=== PATIENT | female | born 1965 | race Asian ===

== ENCOUNTER → 2017-11-27 | Outpatient (CLI) | payer OTHER ==
[~2017-11-27] MED LIST: ALBU90OI INH; ANXIETY PILL; BENZ100A PO; IBUP600 PO; MIGRAINE PILL; MUSCLE RELAXER; Monodox100 MG PO; Prednisone20 MG PO; SPACE CHAMBER1 EACH MC; [UNRECOGNIZED DRUG - REMARK]
[2017-11-27 16:56] LABS: Bilirubin, Urine Neg (Neg); Blood, Urine 3+ (Neg); Glucose Qualitative, Urine Neg (Neg); Ketones, Urine Neg (Neg); Nitrite, Urine Neg (Neg)
[2017-11-27 16:59] LABS: Appearance, Urine Cloudy (Clear); Color, Urine Yellow (P-Yellow); Leukocyte Esterase, Urine Neg (Neg); Protein, Urine 2+ (Neg); Specific Gravity, Urine 1.025 (1.003-1.022); Urobilinogen, Urine 1+ (Normal)
[2017-11-27 17:11] LABS: Amorphous Heavy (0-Heavy); Bacteria Few /hpf; Red Blood Cells, Urine 25-50 /hpf (0-2); Squamous Epithelial Cells Not Seen /hpf (Few); White Blood Cells, Urine Not Seen /hpf (0-5)
[2017-11-28 09:04] LABS: Candida species (DNA Probe) Negative (NEGATIVE); G. vaginalis (DNA Probe) Positive (NEGATIVE); T. vaginalis (DNA Probe) Negative (NEGATIVE)
== END ==
LOC: LAB 12:15
PROVIDERS: Nurse Practitioner Family
DX: N89.8 Other specified noninflammatory disorders of vagina (principal); R35.0 Frequency of micturition
CPT/HCPCS: 81001; 87086; 87480; 87510; 87660

== ENCOUNTER → 2018-06-15 | Outpatient (CLI) | payer OTHER ==
[2018-06-16 11:52] LABS: Candida species (DNA Probe) Negative (NEGATIVE); G. vaginalis (DNA Probe) Positive (NEGATIVE); T. vaginalis (DNA Probe) Negative (NEGATIVE)
[2018-06-17 02:14] LABS: CHLAMYDIA TRACHOMATIS, NAA Negative (Negative); NEISSERIA GONORRHOEAE, NAA Negative (Negative)
== END ==
LOC: LAB 11:25 → LAB SHORT 11:25
PROVIDERS: Nurse Practitioner Family
DX: N89.8 Other specified noninflammatory disorders of vagina (principal)
CPT/HCPCS: 87480; 87491; 87510; 87591; 87660

== ENCOUNTER → 2018-12-21 | Outpatient (CLI) | payer OTHER ==
[2018-12-23 15:07] LABS: HPV 16 Negative (Negative); HPV 18 Negative (Negative); HPV OTHER HR TYPES Negative (Negative)
== END | disposition home or self-care (01) ==
LOC: LAB SHORT 15:57 → LAB 15:57
PROVIDERS: Obstetrics & Gynecology
DX: R87.810 Cervical high risk human papillomavirus (HPV) DNA test positive (principal)
CPT/HCPCS: 87624; 88142

== ENCOUNTER 2019-01-18 08:56 | Day surgery (SDC) | payer OTHER ==
[~2019-01-18] VITALS: Ht 167.6 cm; Wt 71.2 kg
[2019-01-18] MEDS ORDERED: TRAZ50 (09:35)
[2019-01-18] MEDS ORDERED: MIRT30 (09:36)
[2019-01-18] MEDS ORDERED: TIZANIDINE HCL4 MG (09:36)
== END 2019-01-18 10:57 | disposition home or self-care (01) ==
LOC: ORSCSDS 08:56
PROVIDERS: Internal Medicine Gastroenterology
PROC: 0DBH8ZX Excision of Cecum, Via Natural or Artificial Opening Endoscopic, Diagnostic (ICD-10-PCS; principal; 2019-01-18 10:30)
PROC: 0DBP8ZX Excision of Rectum, Via Natural or Artificial Opening Endoscopic, Diagnostic (ICD-10-PCS; principal; 2019-01-18 10:30)
DX: R10.9 Unspecified abdominal pain (principal); D12.0 Benign neoplasm of cecum; K62.1 Rectal polyp; Z80.0 Family history of malignant neoplasm of digestive organs; K59.00 Constipation, unspecified; J45.909 Unspecified asthma, uncomplicated; F43.10 Post-traumatic stress disorder, unspecified; K64.8 Other hemorrhoids; F41.8 Other specified anxiety disorders; F17.210 Nicotine dependence, cigarettes, uncomplicated; Z79.899 Other long term (current) drug therapy
CPT/HCPCS: 88305; J2250; J2704; J7120

== ENCOUNTER 2020-10-23 12:49 | Emergency (ER) | payer OTHER ==
[~2020-10-23] VITALS: Ht 165.1 cm; Wt 76.2 kg
[~2020-10-23 12:49] MED LIST changes: +MIRT30; +TIZANIDINE HCL4 MG; +TRAZ50
[2020-10-23 13:33] LABS: BASOPHILS ABSOLUTE AUTO 0.03 K/mm3 (0.00-0.23); BASOPHILS PERCENT AUTO 1 % (0-2); EOSINOPHILS ABSOLUTE AUTO 0.07 K/mm3 (0.00-0.68); EOSINOPHILS PERCENT AUTO 1 % (0-6); Hematocrit 39.1 % (33.0-51.0); Hemoglobin 13.1 g/dL (11.5-16.0); IMMATURE GRAN ABSOLUTE AUTO 0.02 K/mm3 (0.00-0.10); IMMATURE GRAN PERCENT AUTO 0 % (0-1); LYMPHOCYTES ABSOLUTE AUTO 1.76 K/mm3 (0.84-5.20); LYMPHOCYTES PERCENT AUTO 31 % (21-46); MONOCYTES PERCENT AUTO 9 % (4-13); Mean Corpuscular HGB Conc 33.5 g/dL (31.5-36.5); Mean Corpuscular Volume 95 fL (80-100); Mean Platelet Volume 9.5 fL (9.1-12.4); NEUTROPHILS ABSOLUTE AUTO 3.32 K/mm3 (1.96-9.15); NEUTROPHILS PERCENT AUTO 58 % (41-73); Platelet Count 296 K/mm3 (150-400); RDW Coefficient Variation 13.1 % (11.7-14.2); RDW Standard Deviation 46.1 fL (35.1-46.3)
[2020-10-23 13:52] LABS: Alanine Aminotransfer (ALT/SGP 28 U/L (12-78); Albumin, Blood 3.5 g/dL (3.4-5.0); Albumin/Globulin Ratio 0.8 (0.8-1.8); Alk Phos 86 U/L (50-136); Anion Gap 10 mmol/L (6-16); Aspartate Aminotrans (AST/SGOT 15 U/L (12-37); Bilirubin, Total 0.5 mg/dL (0.1-1.0); Blood Urea Nitrogen 13 mg/dL (8-24); Bun/Creatinine Ratio 17.4 (12.0-20.0); CO2, Blood 24 mmol/L (21-32); Chloride, Blood 107 mmol/L (98-108); Creatinine, Blood 0.75 mg/dL (0.40-1.00); Globulin, Blood 4.2 g/dL (2.2-4.0); Glomerular Filtration Rate >60 (60-); Glucose, Blood 111 mg/dL (70-99); Potassium, Blood 3.6 mmol/L (3.5-5.5); Sodium, Blood 141 mmol/L (136-145); Total Protein, Blood 7.7 g/dL (6.4-8.2)
[2020-10-23 14:37] LABS: Source, Urine Clean Catch
[2020-10-23 14:41] LABS: Appearance, Urine Clear (Clear); Bilirubin, Urine Neg (Neg); Blood, Urine 3+ (Neg); Color, Urine Yellow (P-Yellow); Glucose Qualitative, Urine Neg (Neg); Ketones, Urine Neg (Neg); Leukocyte Esterase, Urine 1+ (Neg); Nitrite, Urine Neg (Neg); Protein, Urine Neg (Neg); Specific Gravity, Urine 1.025 (1.003-1.022); Urobilinogen, Urine NORM (Normal)
[2020-10-23 14:55] LABS: Bacteria Few /hpf; Mucus Light (0-Heavy); Squamous Epithelial Cells Few /hpf (Few); White Blood Cells, Urine 0-2 /hpf (0-5)
[2020-10-23 17:16] LABS: Candida species (DNA Probe) Negative (NEGATIVE); G. vaginalis (DNA Probe) Negative (NEGATIVE); T. vaginalis (DNA Probe) Negative (NEGATIVE)
== END 2020-10-23 16:45 | disposition home or self-care (01) ==
LOC: ER 12:49
PROVIDERS: Emergency Medicine; Physician Assistant
DX: N89.8 Other specified noninflammatory disorders of vagina (principal); K59.00 Constipation, unspecified; R91.1 Solitary pulmonary nodule; J45.909 Unspecified asthma, uncomplicated; Z79.899 Other long term (current) drug therapy; Z88.8 Allergy status to other drugs, medicaments and biological substances; Z79.52 Long term (current) use of systemic steroids
CPT/HCPCS: 36415; 74176; 80053; 81001; 83690; 85025; 87086; 87480; 87510; 87660; 96374; 99284-25; A9270; J1885

== ENCOUNTER 2021-01-09 22:43 | Emergency (ER) | payer OTHER ==
[~2021-01-09] VITALS: Ht 167.6 cm; Wt 77.1 kg
[2021-01-10] MEDS ORDERED: IBU600 M1 (00:58)
[2021-01-10] MEDS ORDERED: IBUP600 PO (03:49)
[2021-01-10] MEDS ORDERED: Norco 5-325 Ta1 EACH PO (03:49)
[2021-01-10] MEDS ORDERED: CYCL10 PO (03:51)
== END 2021-01-10 04:17 | disposition home or self-care (01) ==
LOC: ER 22:43
DX: S20.211A Contusion of right front wall of thorax, initial encounter (principal); F17.200 Nicotine dependence, unspecified, uncomplicated; Z88.8 Allergy status to other drugs, medicaments and biological substances; V16.4XXA Pedal cycle driver injured in collision with other nonmotor vehicle in traffic accident, initial encounter
CPT/HCPCS: 71046; 99284-25; A9270; A9270-GY

== ENCOUNTER → 2021-10-17 | Outpatient (CLI) | payer OTHER ==
[~2021-10-17] MED LIST changes: +CYCL10 PO; +IBU600 M1; +Norco 5-325 Ta1 EACH PO
[2021-10-17 14:06] LABS: BASOPHILS ABSOLUTE AUTO 0.03 K/mm3 (0.00-0.23); BASOPHILS PERCENT AUTO 1 % (0-2); EOSINOPHILS ABSOLUTE AUTO 0.16 K/mm3 (0.00-0.68); EOSINOPHILS PERCENT AUTO 3 % (0-6); Hematocrit 44.7 % (33.0-51.0); Hemoglobin 15.8 g/dL (11.5-16.0); IMMATURE GRAN ABSOLUTE AUTO 0.03 K/mm3 (0.00-0.10); IMMATURE GRAN PERCENT AUTO 1 % (0-1); LYMPHOCYTES ABSOLUTE AUTO 1.77 K/mm3 (0.84-5.20); LYMPHOCYTES PERCENT AUTO 36 % (21-46); MONOCYTES ABSOLUTE AUTO 0.53 K/mm3 (0.16-1.47); MONOCYTES PERCENT AUTO 11 % (4-13); Mean Corpuscular HGB 31.9 pg (26.0-34.0); Mean Corpuscular HGB Conc 35.3 g/dL (31.5-36.5); Mean Corpuscular Volume 90 fL (80-100); Mean Platelet Volume 10.6 fL (9.1-12.4); NEUTROPHILS ABSOLUTE AUTO 2.39 K/mm3 (1.96-9.15); NEUTROPHILS PERCENT AUTO 49 % (41-73); Platelet Count 281 K/mm3 (150-400); RDW Coefficient Variation 11.8 % (11.7-14.2); RDW Standard Deviation 38.6 fL (35.1-46.3); Red Blood Cell Count 4.95 M/mm3 (3.80-5.20); White Blood Cell Count 4.91 K/mm3 (4.00-11.30)
[2021-10-17 14:31] LABS: Alanine Aminotransfer (ALT/SGP 53 U/L (12-78); Albumin, Blood 4.1 g/dL (3.4-5.0); Albumin/Globulin Ratio 1.2 (0.8-1.8); Alk Phos 70 U/L (50-136); Anion Gap 5 mmol/L (6-16); Aspartate Aminotrans (AST/SGOT 23 U/L (12-37); Bilirubin, Total 0.4 mg/dL (0.1-1.0); Blood Urea Nitrogen 19 mg/dL (8-24); Bun/Creatinine Ratio 25.4 (12.0-20.0); CO2, Blood 24 mmol/L (21-32); Calcium, Blood 9.2 mg/dL (8.5-10.1); Chloride, Blood 106 mmol/L (98-108); Creatinine, Blood 0.75 mg/dL (0.40-1.00); Globulin, Blood 3.4 g/dL (2.2-4.0); Glomerular Filtration Rate >60 (60-); Glucose, Blood 114 mg/dL (70-99); Potassium, Blood 4.7 mmol/L (3.5-5.5); Sodium, Blood 135 mmol/L (136-145); Total Protein, Blood 7.5 g/dL (6.4-8.2)
== END | disposition home or self-care (01) ==
LOC: LAB SHORT 10:00
PROVIDERS: Internal Medicine Rheumatology
DX: M32.9 Systemic lupus erythematosus, unspecified (principal)
CPT/HCPCS: 80053; 85025; 85651

== ENCOUNTER → 2022-01-17 | Outpatient (CLI) | payer OTHER ==
[2022-01-17 16:21] LABS: Alanine Aminotransfer (ALT/SGP 26 U/L (12-78); Albumin, Blood 3.5 g/dL (3.4-5.0); Albumin/Globulin Ratio 0.8 (0.8-1.8); Alk Phos 103 U/L (50-136); Anion Gap 5 mmol/L (6-16); Aspartate Aminotrans (AST/SGOT 21 U/L (12-37); Bilirubin, Total 0.3 mg/dL (0.1-1.0); Blood Urea Nitrogen 17 mg/dL (8-24); Bun/Creatinine Ratio 22.6 (12.0-20.0); CO2, Blood 25 mmol/L (21-32); Calcium, Blood 9.3 mg/dL (8.5-10.1); Chloride, Blood 107 mmol/L (98-108); Creatinine, Blood 0.75 mg/dL (0.40-1.00); Globulin, Blood 4.4 g/dL (2.2-4.0); Glomerular Filtration Rate >60 (60-); Glucose, Blood 105 mg/dL (70-99); Potassium, Blood 4.4 mmol/L (3.5-5.5); Sodium, Blood 137 mmol/L (136-145); Total Protein, Blood 7.9 g/dL (6.4-8.2)
[2022-01-17 17:31] LABS: BASOPHILS ABSOLUTE AUTO 0.04 K/mm3 (0.00-0.23); BASOPHILS PERCENT AUTO 1 % (0-2); EOSINOPHILS ABSOLUTE AUTO 0.08 K/mm3 (0.00-0.68); EOSINOPHILS PERCENT AUTO 1 % (0-6); Hematocrit 39.7 % (33.0-51.0); Hemoglobin 13.2 g/dL (11.5-16.0); IMMATURE GRAN ABSOLUTE AUTO 0.02 K/mm3 (0.00-0.10); IMMATURE GRAN PERCENT AUTO 0 % (0-1); LYMPHOCYTES ABSOLUTE AUTO 1.05 K/mm3 (0.84-5.20); LYMPHOCYTES PERCENT AUTO 12 % (21-46); MONOCYTES ABSOLUTE AUTO 0.54 K/mm3 (0.16-1.47); MONOCYTES PERCENT AUTO 6 % (4-13); Mean Corpuscular HGB 30.9 pg (26.0-34.0); Mean Corpuscular HGB Conc 33.2 g/dL (31.5-36.5); Mean Corpuscular Volume 93 fL (80-100); NEUTROPHILS ABSOLUTE AUTO 6.95 K/mm3 (1.96-9.15); NEUTROPHILS PERCENT AUTO 80 % (41-73); Platelet Count 435 K/mm3 (150-400); RDW Coefficient Variation 13.2 % (11.7-14.2); RDW Standard Deviation 45.1 fL (35.1-46.3); Red Blood Cell Count 4.27 M/mm3 (3.80-5.20); White Blood Cell Count 8.68 K/mm3 (4.00-11.30)
== END | disposition home or self-care (01) ==
LOC: LAB SHORT 11:25
PROVIDERS: Internal Medicine Rheumatology
DX: M32.9 Systemic lupus erythematosus, unspecified (principal)
CPT/HCPCS: 80053; 85025; 85651

== ENCOUNTER → 2022-09-11 | Outpatient (CLI) | payer OTHER ==
[2022-09-11 14:43] LABS: BASOPHILS ABSOLUTE AUTO 0.05 K/mm3 (0.00-0.23); BASOPHILS PERCENT AUTO 1 % (0-2); EOSINOPHILS PERCENT AUTO 2 % (0-6); Hemoglobin 12.4 g/dL (11.5-16.0); IMMATURE GRAN ABSOLUTE AUTO 0.01 K/mm3 (0.00-0.10); IMMATURE GRAN PERCENT AUTO 0 % (0-1); LYMPHOCYTES ABSOLUTE AUTO 1.19 K/mm3 (0.84-5.20); LYMPHOCYTES PERCENT AUTO 25 % (21-46); MONOCYTES PERCENT AUTO 8 % (4-13); Mean Corpuscular HGB 31.1 pg (26.0-34.0); Mean Corpuscular HGB Conc 34.4 g/dL (31.5-36.5); Mean Corpuscular Volume 90 fL (80-100); Mean Platelet Volume 9.5 fL (9.1-12.4); NEUTROPHILS ABSOLUTE AUTO 3.08 K/mm3 (1.96-9.15); NEUTROPHILS PERCENT AUTO 64 % (41-73); Platelet Count 389 K/mm3 (150-400); RDW Coefficient Variation 12.8 % (11.7-14.2); RDW Standard Deviation 42.4 fL (35.1-46.3); Red Blood Cell Count 3.99 M/mm3 (3.80-5.20); White Blood Cell Count 4.83 K/mm3 (4.00-11.30)
[2022-09-11 16:10] LABS: Albumin, Blood 3.2 g/dL (3.4-5.0); Albumin/Globulin Ratio 0.7 (0.8-1.8); Bilirubin, Total 0.3 mg/dL (0.1-1.0); Bun/Creatinine Ratio 17.6 (12.0-20.0); Calcium, Blood 8.6 mg/dL (8.5-10.1); Creatinine, Blood 0.68 mg/dL (0.40-1.00); Globulin, Blood 4.8 g/dL (2.2-4.0); Potassium, Blood 3.9 mmol/L (3.5-5.5)
== END | disposition home or self-care (01) ==
LOC: LAB SHORT 12:47 → LAB 12:47
PROVIDERS: Internal Medicine Rheumatology
DX: M32.9 Systemic lupus erythematosus, unspecified (principal)
CPT/HCPCS: 80053; 85025; 85651

== ENCOUNTER → 2022-10-08 | Outpatient (CLI) | payer OTHER ==
[2022-10-09 10:34] LABS: Candida species (DNA Probe) Negative (NEGATIVE); G. vaginalis (DNA Probe) Positive (NEGATIVE); T. vaginalis (DNA Probe) Negative (NEGATIVE)
[2022-10-11 18:10] LABS: HPV 16 Negative (Negative); HPV 18 Negative (Negative); HPV OTHER HR TYPES Negative (Negative)
== END | disposition home or self-care (01) ==
LOC: LAB SHORT 15:30
PROVIDERS: Student in an Organized Health Care Education/Training Program
DX: Z12.4 Encounter for screening for malignant neoplasm of cervix (principal); N94.9 Unspecified condition associated with female genital organs and menstrual cycle
CPT/HCPCS: 87480; 87510; 87660

== ENCOUNTER → 2023-01-22 | Outpatient (CLI) | payer OTHER ==
[2023-01-22 19:01] LABS: BASOPHILS ABSOLUTE AUTO 0.05 K/mm3 (0.00-0.23); BASOPHILS PERCENT AUTO 1 % (0-2); EOSINOPHILS ABSOLUTE AUTO 0.12 K/mm3 (0.00-0.68); EOSINOPHILS PERCENT AUTO 2 % (0-6); Hematocrit 37.2 % (33.0-51.0); Hemoglobin 12.8 g/dL (11.5-16.0); IMMATURE GRAN ABSOLUTE AUTO 0.02 K/mm3 (0.00-0.10); IMMATURE GRAN PERCENT AUTO 0 % (0-1); LYMPHOCYTES ABSOLUTE AUTO 1.69 K/mm3 (0.84-5.20); LYMPHOCYTES PERCENT AUTO 30 % (21-46); MONOCYTES ABSOLUTE AUTO 0.59 K/mm3 (0.16-1.47); MONOCYTES PERCENT AUTO 11 % (4-13); Mean Corpuscular HGB 31.4 pg (26.0-34.0); Mean Corpuscular HGB Conc 34.4 g/dL (31.5-36.5); Mean Corpuscular Volume 91 fL (80-100); Mean Platelet Volume 10.1 fL (9.1-12.4); NEUTROPHILS ABSOLUTE AUTO 3.09 K/mm3 (1.96-9.15); NEUTROPHILS PERCENT AUTO 56 % (41-73); Platelet Count 362 K/mm3 (150-400); RDW Coefficient Variation 13.2 % (11.7-14.2); RDW Standard Deviation 44.4 fL (35.1-46.3); Red Blood Cell Count 4.07 M/mm3 (3.80-5.20); White Blood Cell Count 5.56 K/mm3 (4.00-11.30)
[2023-01-22 20:45] LABS: Albumin, Blood 3.5 g/dL (3.4-5.0); Albumin/Globulin Ratio 0.7 (0.8-1.8); Bilirubin, Total 0.8 mg/dL (0.1-1.0); Bun/Creatinine Ratio 19.4 (12.0-20.0); Calcium, Blood 9.1 mg/dL (8.5-10.1); Creatinine, Blood 0.67 mg/dL (0.40-1.00); Globulin, Blood 4.7 g/dL (2.2-4.0); Potassium, Blood 3.6 mmol/L (3.5-5.5); Total Protein, Blood 8.2 g/dL (6.4-8.2)
== END | disposition home or self-care (01) ==
LOC: LAB SHORT 17:07 → LAB 17:07
PROVIDERS: Internal Medicine Rheumatology
DX: M32.9 Systemic lupus erythematosus, unspecified (principal)
CPT/HCPCS: 80053; 85025; 85651

== ENCOUNTER 2023-07-15 02:26 | Day surgery (SDC) | payer OTHER ==
[2023-07-15 14:49] VITALS: BP 123/81
[2023-07-15 14:51] LABS: BASOPHILS ABSOLUTE AUTO 0.08 K/mm3 (0.00-0.23); BASOPHILS PERCENT AUTO 1 % (0-2); EOSINOPHILS PERCENT AUTO 4 % (0-6); Hematocrit 40.3 % (33.0-51.0); Hemoglobin 14.3 g/dL (11.5-16.0); IMMATURE GRAN ABSOLUTE AUTO 0.02 K/mm3 (0.00-0.10); IMMATURE GRAN PERCENT AUTO 0 % (0-1); LYMPHOCYTES ABSOLUTE AUTO 1.99 K/mm3 (0.84-5.20); LYMPHOCYTES PERCENT AUTO 24 % (21-46); MONOCYTES ABSOLUTE AUTO 0.62 K/mm3 (0.16-1.47); MONOCYTES PERCENT AUTO 8 % (4-13); Mean Corpuscular HGB 32.6 pg (26.0-34.0); Mean Corpuscular HGB Conc 35.5 g/dL (31.5-36.5); Mean Corpuscular Volume 92 fL (80-100); Mean Platelet Volume 9.5 fL (9.1-12.4); NEUTROPHILS ABSOLUTE AUTO 5.15 K/mm3 (1.96-9.15); NEUTROPHILS PERCENT AUTO 63 % (41-73); Platelet Count 404 K/mm3 (150-400); RDW Coefficient Variation 12.8 % (11.7-14.2); RDW Standard Deviation 43.5 fL (35.1-46.3); Red Blood Cell Count 4.38 M/mm3 (3.80-5.20); White Blood Cell Count 8.16 K/mm3 (4.00-11.30)
[2023-07-15 15:08] LABS: Albumin, Blood 3.4 g/dL (3.4-5.0); Albumin/Globulin Ratio 0.7 (0.8-1.8); Bilirubin, Total 0.4 mg/dL (0.1-1.0); Bun/Creatinine Ratio 28.6 (12.0-20.0); Creatinine, Blood 0.84 mg/dL (0.40-1.00); Globulin, Blood 5.1 g/dL (2.2-4.0); Potassium, Blood 4.4 mmol/L (3.5-5.5); Total Protein, Blood 8.5 g/dL (6.4-8.2)
== END 2023-07-15 17:25 | disposition home or self-care (01) ==
LOC: ATC 02:26
PROVIDERS: Student in an Organized Health Care Education/Training Program
DX: M06.9 Rheumatoid arthritis, unspecified (principal); M35.00 Sjogren syndrome, unspecified; Z72.0 Tobacco use
CPT/HCPCS: 80053; 85025; 85651; 96413; 96415; J7050; Q5103

== ENCOUNTER 2023-07-28 03:09 | Day surgery (SDC) | payer OTHER ==
[2023-07-28 13:36] VITALS: BP 164/69
[2023-07-28 14:17] LABS: BASOPHILS ABSOLUTE AUTO 0.06 K/mm3 (0.00-0.23); BASOPHILS PERCENT AUTO 1 % (0-2); EOSINOPHILS ABSOLUTE AUTO 0.28 K/mm3 (0.00-0.68); EOSINOPHILS PERCENT AUTO 4 % (0-6); Hematocrit 41.8 % (33.0-51.0); Hemoglobin 14.3 g/dL (11.5-16.0); IMMATURE GRAN ABSOLUTE AUTO 0.03 K/mm3 (0.00-0.10); IMMATURE GRAN PERCENT AUTO 1 % (0-1); LYMPHOCYTES ABSOLUTE AUTO 2.15 K/mm3 (0.84-5.20); LYMPHOCYTES PERCENT AUTO 34 % (21-46); MONOCYTES ABSOLUTE AUTO 0.62 K/mm3 (0.16-1.47); MONOCYTES PERCENT AUTO 10 % (4-13); Mean Corpuscular HGB 32.1 pg (26.0-34.0); Mean Corpuscular HGB Conc 34.2 g/dL (31.5-36.5); Mean Corpuscular Volume 94 fL (80-100); Mean Platelet Volume 9.7 fL (9.1-12.4); NEUTROPHILS ABSOLUTE AUTO 3.23 K/mm3 (1.96-9.15); NEUTROPHILS PERCENT AUTO 51 % (41-73); Platelet Count 293 K/mm3 (150-400); RDW Coefficient Variation 12.8 % (11.7-14.2); RDW Standard Deviation 44.4 fL (35.1-46.3); Red Blood Cell Count 4.45 M/mm3 (3.80-5.20); White Blood Cell Count 6.37 K/mm3 (4.00-11.30)
[2023-07-28 15:57] LABS: Albumin, Blood 3.8 g/dL (3.4-5.0); Albumin/Globulin Ratio 0.8 (0.8-1.8); Bilirubin, Total 0.6 mg/dL (0.1-1.0); Bun/Creatinine Ratio 23.6 (12.0-20.0); Calcium, Blood 9.2 mg/dL (8.5-10.1); Creatinine, Blood 0.8 mg/dL (0.40-1.00); Potassium, Blood 4.3 mmol/L (3.5-5.5); Total Protein, Blood 8.8 g/dL (6.4-8.2)
== END 2023-07-28 16:20 | disposition home or self-care (01) ==
LOC: ATC 03:09
PROVIDERS: Internal Medicine Rheumatology
DX: M06.9 Rheumatoid arthritis, unspecified (principal); M35.00 Sjogren syndrome, unspecified; F17.200 Nicotine dependence, unspecified, uncomplicated; Z88.8 Allergy status to other drugs, medicaments and biological substances; Z79.899 Other long term (current) drug therapy
CPT/HCPCS: 80053; 85025; 96413; 96415; J7050; Q5103

== ENCOUNTER 2023-08-25 02:41 | Day surgery (SDC) | payer OTHER ==
[2023-08-25 08:58] VITALS: BP 141/69
== END 2023-08-25 11:31 | disposition home or self-care (01) ==
LOC: ATC 02:41
DX: M06.9 Rheumatoid arthritis, unspecified (principal); M35.00 Sjogren syndrome, unspecified; Z72.0 Tobacco use; Z80.0 Family history of malignant neoplasm of digestive organs
CPT/HCPCS: 96413; 96415; J7050; Q5103

== ENCOUNTER 2023-10-20 03:23 | Day surgery (SDC) | payer OTHER ==
[2023-10-20 09:27] VITALS: BP 170/70
[2023-10-20 09:59] LABS: BASOPHILS ABSOLUTE AUTO 0.07 K/mm3 (0.00-0.23); BASOPHILS PERCENT AUTO 1 % (0-2); EOSINOPHILS ABSOLUTE AUTO 0.18 K/mm3 (0.00-0.68); EOSINOPHILS PERCENT AUTO 2 % (0-6); Hematocrit 40.6 % (33.0-51.0); Hemoglobin 13.9 g/dL (11.5-16.0); IMMATURE GRAN ABSOLUTE AUTO 0.07 K/mm3 (0.00-0.10); IMMATURE GRAN PERCENT AUTO 1 % (0-1); LYMPHOCYTES ABSOLUTE AUTO 2.79 K/mm3 (0.84-5.20); LYMPHOCYTES PERCENT AUTO 25 % (21-46); MONOCYTES ABSOLUTE AUTO 0.93 K/mm3 (0.16-1.47); MONOCYTES PERCENT AUTO 8 % (4-13); Mean Corpuscular HGB 31.4 pg (26.0-34.0); Mean Corpuscular HGB Conc 34.2 g/dL (31.5-36.5); Mean Corpuscular Volume 92 fL (80-100); Mean Platelet Volume 9.4 fL (9.1-12.4); NEUTROPHILS ABSOLUTE AUTO 7.19 K/mm3 (1.96-9.15); NEUTROPHILS PERCENT AUTO 64 % (41-73); Platelet Count 383 K/mm3 (150-400); RDW Coefficient Variation 12.7 % (11.7-14.2); Red Blood Cell Count 4.43 M/mm3 (3.80-5.20); White Blood Cell Count 11.23 K/mm3 (4.00-11.30)
[2023-10-20] MEDS ORDERED: Prednisone10 MG PO (10:13)
[2023-10-20] MEDS ORDERED: INFLECTRA100 MG IV (10:13)
[2023-10-20 10:21] LABS: Albumin, Blood 3.3 g/dL (3.4-5.0); Albumin/Globulin Ratio 0.7 (0.8-1.8); Bilirubin, Total 0.3 mg/dL (0.1-1.0); Bun/Creatinine Ratio 20.1 (12.0-20.0); Calcium, Blood 9.1 mg/dL (8.5-10.1); Creatinine, Blood 0.75 mg/dL (0.40-1.00); Globulin, Blood 4.7 g/dL (2.2-4.0); Potassium, Blood 3.2 mmol/L (3.5-5.5)
[2023-10-20 12:12] VITALS: BP 180/85
--- NOTE | 2023-10-20 12:29 | NUR ---
SPOKE WITH PT ABOUT HIGH BP. ASKED PT TO CHECK HER BP A FEW TIMES TO SEE IF IT IS STILL HIGH. PT DOES NOT HAVE ANY SIGNS THAT THE BP IS BOTHERING HER. THE BP WAS DONE MANUALLY. TOLD PT WHAT STORES HAD A BP MACHINE.
== END 2023-10-20 12:30 | disposition home or self-care (01) ==
LOC: ATC 03:23
PROVIDERS: Student in an Organized Health Care Education/Training Program
DX: M06.9 Rheumatoid arthritis, unspecified (principal); M35.00 Sjogren syndrome, unspecified; F17.200 Nicotine dependence, unspecified, uncomplicated; Z79.899 Other long term (current) drug therapy
CPT/HCPCS: 80053; 85025; 85651; 96413; 96415; J7050; Q5103

== ENCOUNTER 2023-11-03 12:48 | Emergency (ER) | payer OTHER ==
[~2023-11-03] VITALS: Ht 165.1 cm; Wt 69.0 kg
[~2023-11-03 12:48] MED LIST changes: +INFLECTRA100 MG IV; +Prednisone10 MG PO
[2023-11-03 13:40] LABS: BASOPHILS ABSOLUTE AUTO 0.06 K/mm3 (0.00-0.23); BASOPHILS PERCENT AUTO 1 % (0-2); EOSINOPHILS ABSOLUTE AUTO 0.25 K/mm3 (0.00-0.68); EOSINOPHILS PERCENT AUTO 4 % (0-6); Hematocrit 43.8 % (33.0-51.0); Hemoglobin 14.9 g/dL (11.5-16.0); IMMATURE GRAN ABSOLUTE AUTO 0.01 K/mm3 (0.00-0.10); IMMATURE GRAN PERCENT AUTO 0 % (0-1); LYMPHOCYTES ABSOLUTE AUTO 1.82 K/mm3 (0.84-5.20); LYMPHOCYTES PERCENT AUTO 28 % (21-46); MONOCYTES ABSOLUTE AUTO 0.67 K/mm3 (0.16-1.47); MONOCYTES PERCENT AUTO 10 % (4-13); Mean Corpuscular HGB 31.8 pg (26.0-34.0); Mean Corpuscular Volume 93 fL (80-100); Mean Platelet Volume 9.1 fL (9.1-12.4); NEUTROPHILS ABSOLUTE AUTO 3.78 K/mm3 (1.96-9.15); NEUTROPHILS PERCENT AUTO 57 % (41-73); Platelet Count 309 K/mm3 (150-400); RDW Coefficient Variation 13.1 % (11.7-14.2); RDW Standard Deviation 44.8 fL (35.1-46.3); Red Blood Cell Count 4.69 M/mm3 (3.80-5.20); White Blood Cell Count 6.59 K/mm3 (4.00-11.30)
[2023-11-03 13:55] LABS: Albumin, Blood 3.6 g/dL (3.4-5.0); Albumin/Globulin Ratio 0.7 (0.8-1.8); Bilirubin, Total 0.5 mg/dL (0.1-1.0); Bun/Creatinine Ratio 26.1 (12.0-20.0); Calcium, Blood 9.3 mg/dL (8.5-10.1); Creatinine, Blood 0.73 mg/dL (0.40-1.00); Globulin, Blood 5.2 g/dL (2.2-4.0); Potassium, Blood 4.1 mmol/L (3.5-5.5); Total Protein, Blood 8.8 g/dL (6.4-8.2)
[2023-11-03] MEDS ORDERED: potassium chloride E (15:12)
[2023-11-03] MEDS ORDERED: PRED5 PO (15:13)
[2023-11-03] MEDS ORDERED: ONDA4SO (15:13)
[2023-11-03] MEDS ORDERED: Hydroxychloroq200 MG PO (15:13)
[2023-11-03] MEDS ORDERED: Ventolin/Prove6.7 GM INH (15:14)
[2023-11-03 16:30] VITALS: BP 142/81
== END 2023-11-03 18:29 | disposition home or self-care (01) ==
LOC: ER 12:48
PROVIDERS: Physician Assistant
DX: R07.89 Other chest pain (principal); R11.2 Nausea with vomiting, unspecified; I10 Essential (primary) hypertension; F17.200 Nicotine dependence, unspecified, uncomplicated; J45.909 Unspecified asthma, uncomplicated; G43.909 Migraine, unspecified, not intractable, without status migrainosus; Z79.52 Long term (current) use of systemic steroids; Z79.899 Other long term (current) drug therapy; Z88.8 Allergy status to other drugs, medicaments and biological substances
CPT/HCPCS: 71046; 80053; 83690; 84484; 85025; 93005; 93010; 99285-25

== ENCOUNTER 2024-03-29 04:01 | Day surgery (SDC) | payer OTHER ==
[~2024-03-29 04:01] MED LIST changes: +Hydroxychloroq200 MG PO; +ONDA4SO; +PRED5 PO; +Ventolin/Prove6.7 GM INH; +potassium chloride E
[2024-03-29] MEDS ORDERED: TOCILIZUMAB IV SCH (06:00)
[2024-03-29] MEDS ORDERED: NS IV SCH (06:00)
[2024-03-29 09:02] VITALS: BP 144/71
== END 2024-03-29 10:52 | disposition home or self-care (01) ==
LOC: ATC 04:01
DX: M06.9 Rheumatoid arthritis, unspecified (principal); M35.00 Sjogren syndrome, unspecified
CPT/HCPCS: 96365; J3262

== ENCOUNTER 2024-04-26 08:00 | Day surgery (SDC) | payer OTHER ==
[~2024-04-26] VITALS: Wt 67.9 kg
[~2024-04-26 08:00] MED LIST changes: +NS IV SCH; +TOCILIZUMAB IV SCH
[2024-04-26 09:14] VITALS: BP 153/105
[2024-04-26] MEDS ORDERED: TOCILIZUMAB IV SCH (09:40)
[2024-04-26] MEDS ORDERED: NS IV SCH (09:40)
[2024-04-26 09:49] LABS: BASOPHILS ABSOLUTE AUTO 0.08 K/mm3 (0.00-0.23); BASOPHILS PERCENT AUTO 1 % (0-2); EOSINOPHILS ABSOLUTE AUTO 0.23 K/mm3 (0.00-0.68); EOSINOPHILS PERCENT AUTO 4 % (0-6); Hematocrit 40.5 % (33.0-51.0); Hemoglobin 14.1 g/dL (11.5-16.0); IMMATURE GRAN ABSOLUTE AUTO 0.02 K/mm3 (0.00-0.10); IMMATURE GRAN PERCENT AUTO 0 % (0-1); LYMPHOCYTES ABSOLUTE AUTO 1.69 K/mm3 (0.84-5.20); LYMPHOCYTES PERCENT AUTO 27 % (21-46); MONOCYTES ABSOLUTE AUTO 0.67 K/mm3 (0.16-1.47); MONOCYTES PERCENT AUTO 11 % (4-13); Mean Corpuscular HGB Conc 34.8 g/dL (31.5-36.5); Mean Corpuscular Volume 92 fL (80-100); Mean Platelet Volume 9.9 fL (9.1-12.4); NEUTROPHILS ABSOLUTE AUTO 3.51 K/mm3 (1.96-9.15); NEUTROPHILS PERCENT AUTO 57 % (41-73); Platelet Count 255 K/mm3 (150-400); RDW Standard Deviation 47.4 fL (35.1-46.3); Red Blood Cell Count 4.41 M/mm3 (3.80-5.20)
[2024-04-26 10:16] LABS: Albumin, Blood 3.8 g/dL (3.4-5.0); Bilirubin, Total 0.6 mg/dL (0.1-1.0); Bun/Creatinine Ratio 19.6 (12.0-20.0); Calcium, Blood 8.7 mg/dL (8.5-10.1); Creatinine, Blood 0.82 mg/dL (0.40-1.00); Potassium, Blood 3.7 mmol/L (3.5-5.5); Total Protein, Blood 7.8 g/dL (6.4-8.2)
== END 2024-04-29 05:26 | disposition home or self-care (01) ==
LOC: ATC 08:00
PROVIDERS: Internal Medicine Rheumatology
DX: M06.9 Rheumatoid arthritis, unspecified (principal); F17.210 Nicotine dependence, cigarettes, uncomplicated
CPT/HCPCS: 80053; 85025; 96365; J3262

== ENCOUNTER → 2024-05-19 | Outpatient (CLI) | payer OTHER ==
[~2024-05-19] MED LIST changes: -NS IV SCH; -TOCILIZUMAB IV SCH
[2024-05-21 11:38] LABS: CALPROTECTIN,FECAL 52 ug/g (<=49)
== END | disposition home or self-care (01) ==
LOC: LAB SHORT 08:30 → LAB 08:30
PROVIDERS: Physician Assistant Medical
DX: R10.32 Left lower quadrant pain (principal)
CPT/HCPCS: 83993

== ENCOUNTER 2024-05-24 03:04 | Day surgery (SDC) | payer OTHER ==
[2024-05-24] MEDS ORDERED: NS IV SCH (06:00)
[2024-05-24] MEDS ORDERED: TOCILIZUMAB IV SCH (06:00)
[2024-05-24 14:30] VITALS: BP 152/95
== END 2024-05-24 16:14 | disposition home or self-care (01) ==
LOC: ATC 03:04
DX: M06.9 Rheumatoid arthritis, unspecified (principal); M35.00 Sjogren syndrome, unspecified; Z79.899 Other long term (current) drug therapy
CPT/HCPCS: 96365; J3262

== ENCOUNTER 2024-06-21 03:07 | Day surgery (SDC) | payer OTHER ==
[~2024-06-21] VITALS: Wt 68.2 kg
[2024-06-21] MEDS ORDERED: TOCILIZUMAB IV SCH (06:00)
[2024-06-21] MEDS ORDERED: NS IV SCH (06:00)
[2024-06-21 14:10] VITALS: BP 179/78
== END 2024-06-21 15:59 | disposition home or self-care (01) ==
LOC: ATC 03:07
DX: M06.89 Other specified rheumatoid arthritis, multiple sites (principal); M32.9 Systemic lupus erythematosus, unspecified; M35.00 Sjogren syndrome, unspecified; Z79.899 Other long term (current) drug therapy
CPT/HCPCS: 96365; J3262

== ENCOUNTER 2024-07-19 09:55 | Day surgery (SDC) | payer OTHER ==
[~2024-07-19] VITALS: Ht 165.1 cm; Wt 68.5 kg
[~2024-07-19 09:55] MED LIST changes: +Cyclobenzaprine5 MG PO; +IBUP800 PO; +Lactated Ringer's 1,000 ML IV ONE
[2024-07-19] MEDS ORDERED: PRED5 (10:35)
[2024-07-19] MEDS ORDERED: Lactated Ringer's 1,000 ML IV ONE (11:15)
[2024-07-19] MEDS ORDERED: propofoL 50 ML IV ONE (11:31)
[2024-07-19] MEDS ORDERED: Ondansetron HCl 2 MG / ML 2ML Vial ONE (11:52)
[2024-07-19] MEDS ORDERED: Glycopyrrolate 0.2 MG/ML 1MLVIAL ONE (11:54)
[2024-07-19 12:41] VITALS: BP 119/74
== END 2024-07-19 12:53 | disposition home or self-care (01) ==
LOC: ORSCSDS 09:55
PROVIDERS: Internal Medicine Gastroenterology
PROC: 0DJD8ZZ Inspection of Lower Intestinal Tract, Via Natural or Artificial Opening Endoscopic (ICD-10-PCS; principal; 2024-07-19 11:00)
DX: R10.32 Left lower quadrant pain (principal); K57.30 Diverticulosis of large intestine without perforation or abscess without bleeding; Z86.0101 Personal history of adenomatous and serrated colon polyps; Z80.0 Family history of malignant neoplasm of digestive organs; F17.210 Nicotine dependence, cigarettes, uncomplicated; K59.00 Constipation, unspecified; Z79.899 Other long term (current) drug therapy
CPT/HCPCS: J2405; J2704; J7120

== ENCOUNTER 2024-07-21 02:55 | Day surgery (SDC) | payer OTHER ==
[~2024-07-21] VITALS: Wt 69.3 kg
[~2024-07-21 02:55] MED LIST changes: -Lactated Ringer's 1,000 ML IV ONE; +PRED5
[2024-07-21] MEDS ORDERED: NS IV SCH (06:00)
[2024-07-21] MEDS ORDERED: TOCILIZUMAB IV SCH (06:00)
[2024-07-21 14:49] VITALS: BP 148/73
[2024-07-21 15:43] LABS: BASOPHILS ABSOLUTE AUTO 0.08 K/mm3 (0.00-0.23); BASOPHILS PERCENT AUTO 1 % (0-2); EOSINOPHILS ABSOLUTE AUTO 0.24 K/mm3 (0.00-0.68); EOSINOPHILS PERCENT AUTO 4 % (0-6); Hematocrit 35.5 % (33.0-51.0); Hemoglobin 12.2 g/dL (11.5-16.0); IMMATURE GRAN ABSOLUTE AUTO 0.04 K/mm3 (0.00-0.10); IMMATURE GRAN PERCENT AUTO 1 % (0-1); LYMPHOCYTES ABSOLUTE AUTO 2.42 K/mm3 (0.84-5.20); LYMPHOCYTES PERCENT AUTO 36 % (21-46); MONOCYTES ABSOLUTE AUTO 0.56 K/mm3 (0.16-1.47); MONOCYTES PERCENT AUTO 8 % (4-13); Mean Corpuscular HGB 32.3 pg (26.0-34.0); Mean Corpuscular HGB Conc 34.4 g/dL (31.5-36.5); Mean Corpuscular Volume 94 fL (80-100); Mean Platelet Volume 9.4 fL (9.1-12.4); NEUTROPHILS ABSOLUTE AUTO 3.43 K/mm3 (1.96-9.15); NEUTROPHILS PERCENT AUTO 51 % (41-73); Platelet Count 390 K/mm3 (150-400); RDW Coefficient Variation 13.3 % (11.7-14.2); RDW Standard Deviation 46.4 fL (35.1-46.3); Red Blood Cell Count 3.78 M/mm3 (3.80-5.20); White Blood Cell Count 6.77 K/mm3 (4.00-11.30)
[2024-07-21 15:57] LABS: Albumin, Blood 3.6 g/dL (3.4-5.0); Albumin/Globulin Ratio 0.8 (0.8-1.8); Bilirubin, Total 0.1 mg/dL (0.1-1.0); Bun/Creatinine Ratio 12.3 (12.0-20.0); Calcium, Blood 8.4 mg/dL (8.5-10.1); Creatinine, Blood 0.98 mg/dL (0.40-1.00); Globulin, Blood 4.6 g/dL (2.2-4.0); Potassium, Blood 4.4 mmol/L (3.5-5.5); Total Protein, Blood 8.2 g/dL (6.4-8.2)
== END 2024-07-21 16:26 | disposition home or self-care (01) ==
LOC: ATC 02:55
PROVIDERS: Internal Medicine Rheumatology
DX: M06.9 Rheumatoid arthritis, unspecified (principal); D84.821 Immunodeficiency due to drugs; M35.00 Sjogren syndrome, unspecified; Z79.1 Long term (current) use of non-steroidal anti-inflammatories (NSAID); Z79.899 Other long term (current) drug therapy
CPT/HCPCS: 80053; 85025; 96365; J3262

== ENCOUNTER 2024-09-20 04:05 | Day surgery (SDC) | payer OTHER ==
[2024-09-20] MEDS ORDERED: NS IV SCH (06:00)
[2024-09-20] MEDS ORDERED: TOCILIZUMAB IV SCH (06:00)
[2024-09-20] MEDS ORDERED: Acetaminophen 325 MG TABLET PO SCH (07:10)
[2024-09-20 10:00] VITALS: BP 213/89
[2024-09-20 11:40] VITALS: BP 196/86
--- NOTE | 2024-09-20 11:40 | NUR ---
ELEVATED BP UPON ARRIVAL TO [facility], PT'S BP IS 213/89. PT STATES "IT'S ONLY EVER THAT HIGH WHEN I'M ABOUT TO GET AN IV IN". AGREED TO RECHECK THE PT AT THE END OF THE INFUSION, AFTER PT HAS BEEN ABLE TO RELAX. REPEAT BP IS 196/86. OFFERED TO CONTACT MD ON BEHALF OF PT AND PT STATES "I'D LIKE TO JUST GO BY THERE ON MY LUNCH BREAK TO HAVE THEM CHECK IT". ENCOURAGED PT TO REPORT TO ED FOR ANY SEVERE HEADACHE, CHEST PAIN, OR STROKE SYMPTOMS. PT DENIES COMPLAINTS AT THIS TIME.
== END 2024-09-20 11:41 | disposition home or self-care (01) ==
LOC: ATC 04:05
DX: M06.89 Other specified rheumatoid arthritis, multiple sites (principal); M35.00 Sjogren syndrome, unspecified; M15.9 Polyosteoarthritis, unspecified; D84.821 Immunodeficiency due to drugs; Z79.899 Other long term (current) drug therapy
CPT/HCPCS: 96365; A9270; J3262

== ENCOUNTER 2024-10-02 00:22 | Emergency (ER) | payer OTHER ==
[~2024-10-02] VITALS: Ht 165.1 cm; Wt 63.5 kg
[2024-10-02 00:27] VITALS: BP 139/77
== END 2024-10-02 00:34 | disposition home or self-care (01) ==
LOC: ER 00:22
DX: F41.0 Panic disorder [episodic paroxysmal anxiety] (principal); J45.909 Unspecified asthma, uncomplicated; G43.909 Migraine, unspecified, not intractable, without status migrainosus; F17.200 Nicotine dependence, unspecified, uncomplicated; Z88.3 Allergy status to other anti-infective agents; Z88.8 Allergy status to other drugs, medicaments and biological substances; Z79.899 Other long term (current) drug therapy
CPT/HCPCS: 99282

== ENCOUNTER 2024-10-18 03:52 | Day surgery (SDC) | payer OTHER ==
[2024-10-18] MEDS ORDERED: NS IV SCH (06:00)
[2024-10-18] MEDS ORDERED: TOCILIZUMAB IV SCH (06:00)
[2024-10-18] MEDS ORDERED: Loratadine 10 MG Tab PO SCH (07:00)
[2024-10-18] MEDS ORDERED: Acetaminophen 325 MG TABLET PO SCH (07:00)
[2024-10-18 09:56] VITALS: BP 160/80
== END 2024-10-18 11:23 | disposition home or self-care (01) ==
LOC: ATC 03:52
DX: M06.89 Other specified rheumatoid arthritis, multiple sites (principal); D84.9 Immunodeficiency, unspecified; M35.00 Sjogren syndrome, unspecified
CPT/HCPCS: 96365; A9270; J3262

== ENCOUNTER 2024-11-03 09:22 | Day surgery (SDC) | payer OTHER ==
[~2024-11-03] VITALS: Ht 165.1 cm; Wt 69.2 kg
[~2024-11-03 09:22] MED LIST changes: +Lactated Ringer's 1,000 ML IV ONE; +propofoL 50 ML IV ONE
[2024-11-03] MEDS ORDERED: Lactated Ringer's 1,000 ML IV ONE (10:08)
[2024-11-03 10:51] VITALS: BP 120/78
== END 2024-11-03 10:54 | disposition home or self-care (01) ==
LOC: ORSCSDS 09:22
PROVIDERS: Specialist
PROC: 0DB68ZX Excision of Stomach, Via Natural or Artificial Opening Endoscopic, Diagnostic (ICD-10-PCS; principal; 2024-11-03 10:30)
DX: R10.13 Epigastric pain (principal); I10 Essential (primary) hypertension; K44.9 Diaphragmatic hernia without obstruction or gangrene; K29.70 Gastritis, unspecified, without bleeding; K57.30 Diverticulosis of large intestine without perforation or abscess without bleeding; F17.210 Nicotine dependence, cigarettes, uncomplicated; Z79.899 Other long term (current) drug therapy
CPT/HCPCS: 88305; 88342; J2704; J7120

== ENCOUNTER 2024-11-15 01:07 | Day surgery (SDC) | payer OTHER ==
[~2024-11-15 01:07] MED LIST changes: -Lactated Ringer's 1,000 ML IV ONE; -propofoL 50 ML IV ONE
[2024-11-15] MEDS ORDERED: TOCILIZUMAB IV SCH ×2 (06:00→10:10)
[2024-11-15] MEDS ORDERED: NS IV SCH ×2 (06:00→10:10)
[2024-11-15] MEDS ORDERED: Loratadine 10 MG Tab PO SCH (06:55)
[2024-11-15] MEDS ORDERED: Acetaminophen 325 MG TABLET PO SCH (06:55)
[2024-11-15] MEDS ORDERED: OMEP20ER PO (10:07)
[2024-11-15 10:09] VITALS: BP 194/85
== END 2024-11-15 11:42 | disposition home or self-care (01) ==
LOC: ATC 01:07
DX: M06.89 Other specified rheumatoid arthritis, multiple sites (principal); M35.00 Sjogren syndrome, unspecified; Z79.899 Other long term (current) drug therapy
CPT/HCPCS: 96365; A9270; J3262

== ENCOUNTER 2024-12-27 02:45 | Day surgery (SDC) | payer OTHER ==
[~2024-12-27] VITALS: Wt 69.5 kg
[~2024-12-27 02:45] MED LIST changes: +OMEP20ER PO
[2024-12-27] MEDS ORDERED: NS IV SCH ×2 (06:00→15:15)
[2024-12-27] MEDS ORDERED: TOCILIZUMAB IV SCH ×2 (06:00→15:15)
[2024-12-27] MEDS ORDERED: Acetaminophen 325 MG TABLET PO SCH (07:15)
[2024-12-27] MEDS ORDERED: Loratadine 10 MG Tab PO SCH (07:15)
[2024-12-27 14:54] VITALS: BP 129/69
[2024-12-27 15:21] LABS: BASOPHILS ABSOLUTE AUTO 0.08 K/mm3 (0.00-0.23); BASOPHILS PERCENT AUTO 1 % (0-2); EOSINOPHILS ABSOLUTE AUTO 0.17 K/mm3 (0.00-0.68); EOSINOPHILS PERCENT AUTO 2 % (0-6); Hematocrit 33.6 % (33.0-51.0); IMMATURE GRAN ABSOLUTE AUTO 0.08 K/mm3 (0.00-0.10); IMMATURE GRAN PERCENT AUTO 1 % (0-1); LYMPHOCYTES ABSOLUTE AUTO 1.97 K/mm3 (0.84-5.20); LYMPHOCYTES PERCENT AUTO 18 % (21-46); MONOCYTES ABSOLUTE AUTO 1.17 K/mm3 (0.16-1.47); MONOCYTES PERCENT AUTO 11 % (4-13); Mean Corpuscular HGB 33.9 pg (26.0-34.0); Mean Corpuscular HGB Conc 35.7 g/dL (31.5-36.5); Mean Corpuscular Volume 95 fL (80-100); Mean Platelet Volume 10.1 fL (9.1-12.4); NEUTROPHILS ABSOLUTE AUTO 7.72 K/mm3 (1.96-9.15); NEUTROPHILS PERCENT AUTO 69 % (41-73); Platelet Count 346 K/mm3 (150-400); RDW Coefficient Variation 13.2 % (11.7-14.2); RDW Standard Deviation 46.5 fL (35.1-46.3); Red Blood Cell Count 3.54 M/mm3 (3.80-5.20); White Blood Cell Count 11.19 K/mm3 (4.00-11.30)
--- NOTE | 2024-12-27 17:25 | NUR ---
RE AWILDA GREEN TOP TUBE AFTER INFUSION COMPLETE. FIRST TUBE COLLECTED WITH IV INSERTION HEMOLYZED PER CABLE PULLER.
== END 2024-12-27 16:40 | disposition home or self-care (01) ==
LOC: ATC 02:45
PROVIDERS: Internal Medicine Rheumatology
DX: M06.9 Rheumatoid arthritis, unspecified (principal); D84.821 Immunodeficiency due to drugs; M35.00 Sjogren syndrome, unspecified; Z79.899 Other long term (current) drug therapy
CPT/HCPCS: 85025; 85651; 96365; A9270; J3262

== ENCOUNTER 2025-02-07 05:30 | Day surgery (SDC) | payer OTHER ==
[~2025-02-07] VITALS: Wt 71.6 kg
[2025-02-07] MEDS ORDERED: TOCILIZUMAB IV SCH (06:00)
[2025-02-07] MEDS ORDERED: NS IV SCH (06:00)
[2025-02-07] MEDS ORDERED: Acetaminophen 325 MG TABLET PO SCH (07:10)
[2025-02-07] MEDS ORDERED: Loratadine 10 MG Tab PO SCH (07:10)
[2025-02-07 10:38] VITALS: BP 132/59
[2025-02-07 11:15] LABS: BASOPHILS ABSOLUTE AUTO 0.07 K/mm3 (0.00-0.23); BASOPHILS PERCENT AUTO 1 % (0-2); EOSINOPHILS ABSOLUTE AUTO 0.25 K/mm3 (0.00-0.68); EOSINOPHILS PERCENT AUTO 3 % (0-6); Hematocrit 37.5 % (33.0-51.0); IMMATURE GRAN ABSOLUTE AUTO 0.03 K/mm3 (0.00-0.10); IMMATURE GRAN PERCENT AUTO 0 % (0-1); LYMPHOCYTES ABSOLUTE AUTO 1.93 K/mm3 (0.84-5.20); LYMPHOCYTES PERCENT AUTO 20 % (21-46); MONOCYTES ABSOLUTE AUTO 0.82 K/mm3 (0.16-1.47); MONOCYTES PERCENT AUTO 9 % (4-13); Mean Corpuscular HGB 32.7 pg (26.0-34.0); Mean Corpuscular HGB Conc 34.7 g/dL (31.5-36.5); Mean Corpuscular Volume 95 fL (80-100); NEUTROPHILS ABSOLUTE AUTO 6.36 K/mm3 (1.96-9.15); NEUTROPHILS PERCENT AUTO 67 % (41-73); Platelet Count 333 K/mm3 (150-400); RDW Coefficient Variation 13.1 % (11.7-14.2); RDW Standard Deviation 45.9 fL (35.1-46.3); Red Blood Cell Count 3.97 M/mm3 (3.80-5.20); White Blood Cell Count 9.46 K/mm3 (4.00-11.30)
[2025-02-07 12:04] LABS: Albumin, Blood 3.7 g/dL (3.4-5.0); Albumin/Globulin Ratio 0.9 (0.8-1.8); Bilirubin, Total 0.4 mg/dL (0.1-1.0); Bun/Creatinine Ratio 17.4 (12.0-20.0); Calcium, Blood 8.9 mg/dL (8.5-10.1); Creatinine, Blood 0.75 mg/dL (0.40-1.00); Globulin, Blood 4.1 g/dL (2.2-4.0); Potassium, Blood 3.5 mmol/L (3.5-5.5); Total Protein, Blood 7.8 g/dL (6.4-8.2)
== END 2025-02-07 12:13 | disposition home or self-care (01) ==
LOC: ATC 05:30
PROVIDERS: Internal Medicine Rheumatology
DX: M06.9 Rheumatoid arthritis, unspecified (principal); Z79.899 Other long term (current) drug therapy
CPT/HCPCS: 80053; 85025; 85651; 96365; A9270; J3262

== ENCOUNTER → 2025-02-21 | Outpatient (CLI) | payer OTHER ==
[2025-02-21 17:42] LABS: Source, Urine Clean Catch
[2025-02-21 18:57] LABS: Appearance, Urine Clear (Clear); Bilirubin, Urine Neg (Neg); Blood, Urine 2+ (Neg); Color, Urine Yellow (P-Yellow); Glucose Qualitative, Urine Neg (Neg); Ketones, Urine Neg (Neg); Leukocyte Esterase, Urine Neg (Neg); Nitrite, Urine Neg (Neg); Protein, Urine 1+ (Neg); Specific Gravity, Urine 1.015 (1.003-1.022); Urobilinogen, Urine NORM (Normal)
[2025-02-21 19:35] LABS: Bacteria Not Seen /hpf; Mucus Light (0-Heavy); Red Blood Cells, Urine 0-2 /hpf (0-2); Squamous Epithelial Cells Rare /hpf (Few); White Blood Cells, Urine 0-2 /hpf (0-5)
== END ==
LOC: LAB SHORT 17:40 → LAB 17:40
PROVIDERS: Student in an Organized Health Care Education/Training Program
DX: R10.9 Unspecified abdominal pain (principal); R39.11 Hesitancy of micturition
CPT/HCPCS: 81001

== ENCOUNTER 2025-03-14 03:36 | Day surgery (SDC) | payer OTHER ==
[~2025-03-14] VITALS: Wt 70.1 kg
[2025-03-14] MEDS ORDERED: TOCILIZUMAB IV SCH (06:00)
[2025-03-14] MEDS ORDERED: NS IV SCH (06:00)
[2025-03-14] MEDS ORDERED: Acetaminophen 325 MG TABLET PO SCH (07:20)
[2025-03-14] MEDS ORDERED: Loratadine 10 MG Tab PO SCH (15:30)
[2025-03-14 15:52] VITALS: BP 133/85
[2025-03-14] MEDS ORDERED: AMLO5 PO (15:52)
== END 2025-03-14 17:24 | disposition home or self-care (01) ==
LOC: ATC 03:36
DX: M05.79 Rheumatoid arthritis with rheumatoid factor of multiple sites without organ or systems involvement (principal); M35.00 Sjogren syndrome, unspecified; M15.9 Polyosteoarthritis, unspecified; Z79.899 Other long term (current) drug therapy
CPT/HCPCS: 96365; A9270; J3262

== ENCOUNTER 2025-04-11 05:11 | Day surgery (SDC) | payer OTHER ==
[~2025-04-11] VITALS: Wt 71.0 kg
[~2025-04-11 05:11] MED LIST changes: +AMLO5 PO
[2025-04-11] MEDS ORDERED: TOCILIZUMAB IV SCH (06:00)
[2025-04-11] MEDS ORDERED: NS IV SCH (06:00)
[2025-04-11 15:11] VITALS: BP 155/84
== END 2025-04-11 16:43 | disposition home or self-care (01) ==
LOC: ATC 05:11
DX: M05.742 Rheumatoid arthritis with rheumatoid factor of left hand without organ or systems involvement (principal); M05.741 Rheumatoid arthritis with rheumatoid factor of right hand without organ or systems involvement; M05.762 Rheumatoid arthritis with rheumatoid factor of left knee without organ or systems involvement; M05.761 Rheumatoid arthritis with rheumatoid factor of right knee without organ or systems involvement; M35.00 Sjogren syndrome, unspecified; D84.821 Immunodeficiency due to drugs; Z79.899 Other long term (current) drug therapy
CPT/HCPCS: 96365; A9270; J3262

== ENCOUNTER 2025-05-30 00:35 | Day surgery (SDC) | payer OTHER ==
[~2025-05-30] VITALS: Wt 70.4 kg
[2025-05-30] MEDS ORDERED: TOCILIZUMAB IV SCH (06:00)
[2025-05-30] MEDS ORDERED: NS IV SCH (06:00)
[2025-05-30 14:15] VITALS: BP 101/63
== END 2025-05-30 16:00 | disposition home or self-care (01) ==
LOC: ATC 00:35
DX: M06.9 Rheumatoid arthritis, unspecified (principal); M35.00 Sjogren syndrome, unspecified; M15.9 Polyosteoarthritis, unspecified; D84.821 Immunodeficiency due to drugs; J45.909 Unspecified asthma, uncomplicated; F17.210 Nicotine dependence, cigarettes, uncomplicated; Z79.69 Long term (current) use of other immunomodulators and immunosuppressants; Z79.899 Other long term (current) drug therapy
CPT/HCPCS: 96365; A9270; J3262

== ENCOUNTER 2025-06-27 00:44 | Day surgery (SDC) | payer OTHER ==
[2025-06-27] MEDS ORDERED: NS IV SCH (06:00)
[2025-06-27] MEDS ORDERED: TOCILIZUMAB IV SCH (06:00)
[2025-06-27 13:54] VITALS: BP 121/81
== END 2025-06-27 15:31 | disposition home or self-care (01) ==
LOC: ATC 00:44
DX: M05.79 Rheumatoid arthritis with rheumatoid factor of multiple sites without organ or systems involvement (principal); D84.821 Immunodeficiency due to drugs; M35.00 Sjogren syndrome, unspecified; M15.9 Polyosteoarthritis, unspecified; Z79.899 Other long term (current) drug therapy
CPT/HCPCS: 96365; A9270; J3262

== ENCOUNTER 2025-07-25 03:50 | Day surgery (SDC) | payer OTHER ==
[~2025-07-25] VITALS: Wt 71.6 kg
[2025-07-25] MEDS ORDERED: TOCILIZUMAB IV SCH (06:00)
[2025-07-25] MEDS ORDERED: NS IV SCH (06:00)
[2025-07-25 14:07] VITALS: BP 142/81
== END 2025-07-25 15:35 | disposition home or self-care (01) ==
LOC: ATC 03:50
DX: M05.9 Rheumatoid arthritis with rheumatoid factor, unspecified (principal); M35.00 Sjogren syndrome, unspecified; D84.821 Immunodeficiency due to drugs; J45.909 Unspecified asthma, uncomplicated; F17.210 Nicotine dependence, cigarettes, uncomplicated; Z79.52 Long term (current) use of systemic steroids; Z79.899 Other long term (current) drug therapy
CPT/HCPCS: 96365; A9270; J3262

== ENCOUNTER 2025-08-29 00:22 | Day surgery (SDC) | payer OTHER ==
[~2025-08-29] VITALS: Wt 72.1 kg
[2025-08-29] MEDS ORDERED: NS IV SCH (06:00)
[2025-08-29] MEDS ORDERED: TOCILIZUMAB IV SCH (06:00)
--- NOTE | 2025-08-29 14:16 | NUR ---
CALLED DR DE LA FUENTE'S OFFICE PT NEEDS PREMEDICATIONS ORDERED TO GO ALONG WITH HER ACTEMRA INFUSION. MD HAS SENT NEW ORDER AND DID NOT INCLUDE THE PATIENTS TYLENOL AND CLARITIN ORDER. SAM PEDIATRIC DENTAL ASSISTANT WOULD NOT SEND ME TO THE BACK OFFICE TO GET VERBAL ORDER STATING IT IS THEIR POLICY TO JUST TAKE A MESSAGE. ADVISED PEDIATRIC DENTAL ASSISTANT THAT WE WERE IN A TIME CRUNCH FOR PROVIDING DR LEONDAGO'S PATIENT THEIR MEDICATION AND WE COULD NOT WAIT FOR AN EXTENDED PERIOD OF TIME FOR THE ORDER AND THAT I NEEDED TO HAVE AN ORDER WITHIN THE NEXT 15 MINUTES TO AVOID A DELAY IN THE PATIENTS CARE. PEDIATRIC DENTAL ASSISTANT ATTEMPTED TO GET [employer] DECORATOR APPROVAL TO SEND MY PHONE CALL TO THE DOCTOR, BUT WAS DENIED. PEDIATRIC DENTAL ASSISTANT THEN STATED SHE SENT A NOTE BACK TO THE CLINIC STAFF. I ADVISED THE PEDIATRIC DENTAL ASSISTANT THAT SHE MAY WANT TO INCLUDE A CALL BACK NUMBER THAT I HAVE NOT GIVEN HER YET AND THE PEDIATRIC DENTAL ASSISTANT WAS VERY PUT OFF BY ME POINTING OUT HER MISTAKE. I ADVISED PEDIATRIC DENTAL ASSISTANT THAT IT WAS A CRITICAL PIECE OF INFORMATION TO ENSURE I RECEIVE THE QUICK CALL BACK FOR THE PATIENT. PT ADVISED THAT I COULD NOT GET THROUGH TO HER MD'S OFFICE TO GET HER PREMEDS ORDERED. ADVISED PT WE COULD WAIT A WHILE TO SEE IF I GET A CALL BACK OR WE COULD RESCHEDULE. PT STATED SHE HAS BENADRYL IN HER PURSE AND SHE WILL TAKE THAT AND WE WILL GO FROM THERE.
[2025-08-29 14:57] VITALS: BP 117/71
== END 2025-08-29 15:37 | disposition home or self-care (01) ==
LOC: ATC 00:22
DX: M05.9 Rheumatoid arthritis with rheumatoid factor, unspecified (principal)
CPT/HCPCS: 96365; J3262